=== PATIENT | female | born 1965 | race Hispanic/Latino ===

== ENCOUNTER 2019-08-07 14:30 | Emergency (ER) | payer OTHER ==
[2019-08-07] MEDS ORDERED: HYDROCODONE/APAP 7.5/325 MG TAB ONE (15:52)
[2019-08-07] MEDS ORDERED: IBUPROFEN 400 MG TAB ONE (15:52)
[2019-08-07] MEDS ORDERED: TETANUS & DIPHTHERIA TOX,ADULT 0.5 ML VIAL ONE (15:53)
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
[2019-08-07 18:52] VITALS: BP 144/74; TEMP 97.8; O2SAT 97
== END 2019-08-07 16:33 | disposition home or self-care (01) ==
LOC: ER 14:30
DX: T23.262A Burn of second degree of back of left hand, initial encounter (principal); T31.0 Burns involving less than 10% of body surface; X10.2XXA Contact with fats and cooking oils, initial encounter; Y93.G3 Activity, cooking and baking; Y92.000 Kitchen of unspecified non-institutional (private) residence as the place of occurrence of the external cause; I10 Essential (primary) hypertension; Z23 Encounter for immunization; Z85.038 Personal history of other malignant neoplasm of large intestine
CPT/HCPCS: 90471; 90714; 99283